=== PATIENT | male | born 1955 | race Caucasian/White ===

== ENCOUNTER 2017-04-20 14:27 | Emergency (ER) | payer OTHER ==
[2017-04-20 15:26] LABS: RED BLOOD COUNT 4.47 M/UL (4.20-5.50); WHITE BLOOD COUNT 6.6 K/UL (4.5-11.0)
== END 2017-04-20 15:35 | disposition home or self-care (01) ==
LOC: ER1 14:27
PROVIDERS: Nurse Practitioner Family
DX: R79.9 Abnormal finding of blood chemistry, unspecified (principal); I10 Essential (primary) hypertension; F17.210 Nicotine dependence, cigarettes, uncomplicated
CPT/HCPCS: 36415; 85025; 99283